=== PATIENT | male | born 1935 | race Caucasian/White ===

== ENCOUNTER → 2020-03-02 08:44 | Outpatient (CLI) | payer MEDICARE, OTHER | END | disposition home or self-care (01) | LOC: D.HCCECHO 08:44 | PROVIDERS: ATTEND Internal Medicine Cardiovascular Disease | DX: I10 Essential (primary) hypertension (principal) ==

== ENCOUNTER 2020-04-03 06:26 | Outpatient (CLI) | payer MEDICARE, OTHER ==
[~2020-04-03] VITALS: Ht 177.8 cm; Wt 86.8 kg
--- NOTE | ~2020-04-03 | HEMODYNAMI ---
PATIENT:MALLIKA JON MEDICAL RECORD: [id number] : 33 LOCATION:[facility] ADMISSION DATE: 04/03/20 Generatedon:04/03/20209:46 Patient name: MALLIKA JON Patient #: [id number] SSN: [id number] : 1935 Date of study: 04/03/2020 Page: Of Hemodynamic Procedure Report Patient Data Patient Demographics Procedure consent was obtained First Name: MALLIKA Gender: Male Last Name: DONTRELL : 1935 Patient #: [id number] Age: 84 year(s) Race: SSN: [id number] Additional ID: [id number] Contact details Address: [address] [place] [address] [place]: [place] [facility] [place] [place]: [address] Admission Admission Data Admission Date: 04/03/2020 Admission Time: 6: Arrival Date: 04/03/2020 Arrival Time: 0:00 Admit Source: Other Insurance Payor: Medicare [facility] #: [id number] Height (in.): 69.69 BSA: 2.03 (m2) Height (cm.): 177 BMI: 27.45 (kg/m2) Weight (lbs.): 189.6 Weight (kg.): 86 Lab Results Lab Result Date: 04/03/2020 Lab Result Time: 0:00 Biochemistry Name Units Result Min Max BUN mg/dl 32 --(----)-* 7 18 Creatinine mg/dl 1.7 --(----)-* 0.6 1.3 eGFR ml/min 41 *-(----)-- 90 120 NONAFRICAN CBC Name Units Result Min Max Hemoglobin g/dl 11.4 *-(----)-- 13.5 17.5 Procedure Procedure Types Cath Procedure Diagnostic Procedure LHC Coronaries only Aortic Root Angiography Sedation Charges Moderate Sedation up to 30 minutes Procedure Description Procedure Date Procedure Date: 04/03/2020 Procedure Start Time: 9:21 Procedure End Time: 9:43 Procedure Staff Name Function Brisa Bettencourt RT Monitor Angela Grace RN Nurse Anthony Beasley MD Performing Physician Geetha Canas RT Scrub Procedure Data Cath Procedure Fluoroscopy Diagnostic fluoroscopy Total fluoroscopy Time: 6.4 time: 6.4 min min Diagnostic fluoroscopy Total fluoroscopy dose: 923 dose: 923 mGy mGy Contrast Material Contrast Material Type Amount (ml) Isovue 300 74 Entry Location Entry Primary Successful Side Size Upsize Upsize Entry Closure Case ccessful Closure Location (Fr) 1 (Fr) 2 (Fr) Remarks Device Remarks Radial Right 6 Fr Mechanical artery Short Compression Femoral Right 5 Fr Exoseal artery Estimated blood loss: 5 ml Diagnostic catheters Device Type Used For End Catheter Placement DIAGNOSTIC Dom 110cm Multi-vessel 5Fr catheter ([id number]) Angiography DIAGNOSTIC AR1 MOD 5Fr Right Coronary catheter ([id number]) Angiography Procedure Complications No complications Procedure Medications Medication Administration Route Dosage Oxygen etCO2 Nasal cannula 2 l/min Lidocaine 2% added to field 20 Heparin Flush Bag added to field 2 bags (1000units/500ml NS) 0.9% NaCl I.V. 100 ml/hr Versed I.V. 1 mg Fentanyl I.V. 50 mcg Versed I.V. 1 mg Radial Cocktail I.A. 1 syringe (Verapamil 2mg/Nitro 400mcg/Heparin 1500units) Fentanyl I.V. 50 mcg Hemodynamics Rest BSA: 2.03 (m2) HGB: 11.4 (g/dl) O2 Consumption: Estimated: 211.48 (ml/min) O2 Co nsumption indexed: Estimated:104.18 (ml/min/m) Heart Rate: 45 (bpm) Snapshots Pre Cath Intra NCS Post Cath Vital Signs Time Heart Resp SPO2 etCO2 NIBP (mmHg) Rhythm Pain Sedation Rate (ipm) (%) (mmHg) Status Level (bpm) 9:06:58 46 17 100 38.5 110/65(78) SB 0 (11) 10(A) , No pain 9:11:57 43 10 97 36.3 128/64(100) SB 0 (11) 10(A) , No pain 9:16:14 42 11 96 37.8 127/63(102) SB 0 (11) 9(A) , No pain 9:20:30 45 11 97 0 120/62(92) SB 0 (11) 9(A) , No pain 9:24:48 45 16 95 0 87/48(70) SB 0 (11) 9(A) , No pain 9:29:00 46 12 94 35.5 97/53(62) SB 0 (11) 9(A) , No pain 9:33:09 46 10 94 37 110/60(85) SB 0 (11) 9(A) , No pain 9:37:24 45 10 95 37 116/58(87) SB 0 (11) 9(A) , No pain 9:41:39 43 12 95 38.5 105/57(80) SB 0 (11) 10(A) , No pain Medications Time Medication Route Dose Verified Delivered Reason Notes Effectiveness by by 9:06:06 Oxygen etCO2 2 l/min Anthony Buffie used for Nasal Ramos Grace RN procedure cannula 9:06:14 Lidocaine 2% added 20ml Anthony Anthony for local to vial Ramos Beasley MD anesthetic field 9:06:19 Heparin Flush added 2 bags Anthony Anthony used for Bag to Ramos Beasley MD procedure (1000units/500ml field NS) 9:06:29 0.9% NaCl I.V. 100 Anthony Buffie Per ml/hr Ramos Grace RN physician 9:11:32 Versed I.V. 1 mg Anthony Buffie for sedation Ramos Grace RN 9:11:39 Fentanyl I.V. 50 mcg Anthony Buffie for sedation Ramos Grace RN 9:17:07 Versed I.V. 1 mg Anthony Buffie for sedation Ramos Grace RN 9:23:32 Radial Cocktail I.A. 1 Anthony Anthony for (Verapamil syringe Ramos Beasley MD vasodilation 2mg/Nitro 400mcg/Hepari 9:37:27 Fentanyl I.V. 50 mcg Anthony Anthony for sedation Ramos Beasley MD Procedure Log Time Note 8:35:13 Informed consent obtained and on chart 8:35:23 Diagnostic Cath Status : Elective 8:36:09 Arrival Date: 04/03/2020 12:00:00 AM 8:36:10 Admit Source: Other 8:36:17 Insurance Payor : Medicare 8:45:25 Geetha MCKNIGHT(R) sent for patient. Start room use. 8:51:16 Patient Height : 69.69 inches 8:51:19 Patient Weight : 189.6 lbs 8:56:14 Lab Result : eGFR NONAFRICAN 41 ml/min 8:56:14 Lab Result : Hemoglobin 11.4 g/dl 8:56:14 Lab Result : BUN 32 mg/dl 8:56:14 Lab Result : Creatinine 1.7 mg/dl 8:56:23 Procedure Status Elective Heart Cath (OP). 8:56:32 Time tracking: Regular hours (M-F 7:00 - 5:00) 8:56:37 Plan of Care:Hemodynamics will remain stable., Cardiac rhythm will remain stable., Comfort level will be maintained., Respiratory function will remain adequate., Patient/ family verbilizes understanding of procedure., Procedure tolerated without complication., Recovers from procedure without complications.. 8:56:50 Patient received from Pre/Post Procedure Room to CCL 1 Alert and oriented. Tansferred to table in Supine position. 9:05:52 Vital chart was started 9:06:06 Oxygen 2 l/min etCO2 Nasal cannula was administered by Angela Grace RN; used for procedure; Verbal order read back and verified. 9:06:14 Lidocaine 2% 20ml vial added to field was administered by Anthony Beasley MD; for local anesthetic; Verbal order read back and verified. 9:06:19 Heparin Flush Bag (1000units/500ml NS) 2 bags added to field was administered by Anthony Beasley MD; used for procedure; Verbal order read back and verified. 9:06:23 Correct patient and procedure confirmed by team. 9:06:23 Warm blankets applied, and janey hugger turned on for patient comfort. 9:06:24 ECG and BP/O2 sat monitors applied to patient. 9:06:25 Baseline sample Acquired. 9:06:29 0.9% NaCl 100 ml/hr I.V. was administered by Angela Grace RN; Per physician; Verbal order read back and verified. 9:06:32 Rhythm: sinus bradycardia 9:06:34 Full Disclosure recording started 9:06:38 H&P Date Dictated: 04/03/2020 Within 30 days and on chart., H&P Addendum completed by physician on day of procedure. (MUST COMPLETE FOR ALL OUTPATIENTS). 9:06:40 Pre-op teaching completed and patient verbalized understanding. 9:06:40 Pre-procedure instructions explained to patient. 9:06:41 Family in patients room. 9:06:44 Patient NPO since Midnight. 9:06:45 Is the patient allergic to Iodine/contrast media? No. 9:06:46 Was the patient premedicated? Yes 9:06:48 Is patient on blood thinner?No 9:06:59 Patient diabetic? No. 9:07:03 Previous problem with sedation/anesthesia? No ? 9:07:05 Snore? Yes 9:07:06 Sleep apnea? No 9:07:07 Deviated septum? No 9:07:08 Opens mouth fully? Yes 9:07:09 Sticks out tongue? Yes 9:07:11 Airway obstruction? No ? 9:07:15 Dentures? No ? 9:07:19 Pre procedure: right dorsailis pedis pulse 2+ Normal; easily identifiable; not easily obliterated 9:07:22 Pre procedure: left dorsailis pedis pulse 2+ Normal; easily identifiable; not easily obliterated 9:07:24 Patient pain scale 0/10 ?. 9:07:30 IV patent on arrival in left forearm with 0.9% NaCl at KVO. 9:07:34 Lab results completed and on chart. 9:07:54 Stress Test: yes; abnormal INFERIOR 9:07:57 Risk of Mortality: 2.6 9:08:01 Risk of blood transfusion: 1.8 9:08:04 Risk of LUCERO: 8.0 9:08:19 Right Radial & Right Groin area was prepped with chlora-prep and draped in sterile fashion 9:08:21 Alarms reviewed by R. N. 9:08:22 Sharps counted by scrub and verified by R.N. 9:08:25 --------ALL STOP TIME OUT------ 9:08:25 Physician arrived 9:08:26 Final Timeout: patient, procedure, and site verified with staff and physician. All members of the team are in agreement. 9:08:28 Right Radial & Right Groin site verified by team. 9:08:32 Fire Safety Assessment: A--An alcohol-based skin anteseptic being used preoperatively., C--Open oxygen or nitrous oxide is being used., D--An ESU, laser, or fiber-optic light is being used. 9:08:35 Physical assessment completed. ASA score P 2 - A patient with mild systemic disease as per Anthony Beasley MD. 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 9:08:45 Maximum allowable contrast dose (3.7 X eGFR X 0.75)113 ml. 9:08:49 Sedation plan: IV Moderate Sedation Medication:Versed, Fentanyl 9:08:54 Use device set Radial Dx or PCI 9:08:55 Medline Cath Pack ([id number]) opened to sterile field. 9:08:55 ACIST Syringe (78789) opened to sterile field. 9:08:56 ACIST Hand Control (24733) opened to sterile field. 9:08:56 Bag Decanter (2002S) opened to sterile field. 9:08:57 Tegaderm 4 x 4 (1626W) opened to sterile field. 9:08:57 ACIST Manifold (51160) opened to sterile field. 9:08:58 MBrace Wrist Support ([id number]) opened to sterile field. 9:08:59 NEEDLE Cook 21G 4cm Radial (I59666) opened to sterile field. 9:09:01 EMERALD Guide Wire (831-402) opened to sterile field. 9:09:02 SHEATH 6FR RAIN (2467014) opened to sterile field. 9:11:32 Versed 1 mg I.V. was administered by Angela Grace RN; for sedation; Verbal order read back and verified. 9:11:39 Fentanyl 50 mcg I.V. was administered by Angela Grace RN; for sedation; Verbal order read back and verified. 9:17:07 Versed 1 mg I.V. was administered by Angela Grace RN; for sedation; Verbal order read back and verified. 9:20:05 Procedure started. 9:21:14 Local anesthetic to right radial artery with Lidocaine 2% by Anthony Beasley MD.INITIAL ACCESS ONLY 9:22:35 A 6 Fr Short sheath was inserted into the Right Radial artery 9:23:28 A DIAGNOSTIC Dom 110cm 5Fr catheter ([id number]) was advanced over the wire and used for Multi-vessel Angiography. 9:23:32 Radial Cocktail (Verapamil 2mg/Nitro 400mcg/Heparin 1500units) 1 syringe I.A. was administered by Anthony Beasley MD; for vasodilation; Verbal order read back and verified. 9::13 Catheter removed. unable to cannulate vessel. 9:26:31 DIAGNOSTIC Multipack 5Fr catheter set (QT3503) opened to sterile field. 9::32 SHEATH 5FR [place] (DVD786) opened to sterile field. 9:26:48 Local anesthetic to right femoral artery with Lidocaine 2% by Anthony Beasley MD.ADDITIONAL ACCESS 9:29:15 A 5 Fr sheath was inserted into the Right Femoral artery 9::27 5 Fr JL 4 guide catheter was inserted over the wire 9:29:44 LCA angiography performed. 9::47 Injector settings: Ml/sec: 3, Volume: 6, 9:34:19 Catheter removed. 9:34:30 5 Fr 3DRC guide catheter was inserted over the wire 9:34:40 Catheter removed. unable to cannulate vessel. 9:34:53 A DIAGNOSTIC AR1 MOD 5Fr catheter ([id number]) was advanced over the wire and used for Right Coronary Angiography. 9:37:09 RCA angiography performed. 9:37:13 ACCDominant side:Left 9:37:27 Fentanyl 50 mcg I.V. was administered by Anthony Beasley MD; for sedation; Verbal order read back and verified. 9:37:40 RCA OCCLUDED AT ORIGIN 9:37:43 Catheter removed. 9:38:08 5 Fr PIGTAIL guide catheter was inserted over the wire 9:39:25 Aortic Root visualized 9:40:04 Catheter removed. 9:40:22 Sheath removed intact; hemostasis achieved with Mechanical Compression to the Right Radial artery. 9:40:34 Sheath removed intact; hemostasis achieved with Exoseal to the Right Femoral artery. 9:40:43 ZEPHYR REGULAR TR BAND (754107) opened to sterile field. 9:40:51 Procedure ended.(Physican Out) 9:41:35 Fluoroscopy time 06.40 minutes. 9:41:39 Fluoroscopy dose: 923 mGy 9:41:39 Flurop Dose total: 923 9:41:50 Dose Area Product 69556 mGy/cm. 9:41:53 Contrast amount:Isovue 300 74ml. 9:41:57 Maximum allowable dose exceeded? No. 9:42:05 Sharps counted by scrub and verified by R.N. 9:42:39 Insertion/operative site no bleeding no hematoma. 9:42:42 Post-op/insertion site Right Femoral artery dressed using a 4 x 4 and Tegaderm. 9:42:46 Post right radial artery:stable 9:42:48 Post Procedure Pulses reassessed and unchanged 9:42:51 Post procedure rhythm: unchanged. 9:42:54 Estimated blood loss: 5 ml 9:42:55 Post procedure instruction explained to patient.Patient verbalizes understanding. 9:42:56 Patient needs reinforcement of post procedure teaching. 9:43:31 Procedure type changed to Cath procedure, Diagnostic procedure, LHC, Coronaries only, Aortic Root Angiography, Sedation Charges, Moderate Sedation up to 30 minutes 9:43:36 Procedure and supply charges have been captured, reviewed, submitted and are correct. 9:43:41 Procedure Complication : No complications 9:43:44 Adkins band inflated with 10cc of air. 9:43:47 Vital chart was stopped 9:43:49 [facility] Findings: MVD- MD will discuss options w/ pt 9:43:51 See physician's report for complete and final results. 9:43:51 Operative report dictated upon procedure completion. 9:43:53 Report given to Pre/Post Procedure Room. 9:43:56 Full Disclosure recording stopped 9:43:56 Procedure ended. 9:44:00 End room use (Document Last) Device Usage Item Name Manufacture Quantity Catalog Hospital Part Current Minima l Lot# / Number Charge Number Stock Stock Serial# Code ACIST Acist 1 92123 685864 607856 847144 20 Syringe Medical (09999) Systems Inc Medline Medline 1 [id number] 137835 25451 139323 5 Cath Pack ([id number]) Bag Microtek 1 956350 30060 182173 5 Decanter Medical Inc. () ACIST Hand Acist 1 73601 223988 354462 582335 5 Control Medical (88088) Systems Inc ACIST Acist 1 52944 375476 929524 328191 5 Manifold Medical (38877) Systems Inc Tegaderm 4 3M 1 1626W 622656 529064 020305 5 x 4 (1626W) MBrace Advanced 1 140-0250-00 183458 23917 349777 5 Wrist Vascular Support Dynamics ([id number]) NEEDLE Cook Hyampom Medical 1 O56334 082747 914196 475866 5 21G 4cm Radial (F12275) EMERALD Cardinal 1 502-455 480900 581182 771341 5 Guide Wire Health (502-455) SHEATH 6FR Cardinal 1 8352174 796577 6854223 035188 5 [facility] (9406098) DIAGNOSTIC Terumo 1 40-5023 171272 948568 534891 5 Dom 110cm 5Fr catheter (190878) DIAGNOSTIC Cardinal 1 GB5858 860014 02646 799328 30 Multipack Health 5Fr catheter set (VU6697) SHEATH 5FR Terumo 1 PNE000 711164 953631 302483 5 [place] (AIC895) DIAGNOSTIC Cardinal 1 [id number] 713640 175267 324565 15 AR1 MOD 5Fr Health catheter (162737R) ZEPHYR Cardinal 1 081192 147628 1922855 240564 5 REGULAR TR Health BAND (164878) Signature Audit [place] Stage Time Signature Unsigned Intra-Procedure 04/03/2020 Brisa Bettencourt 9:45:06 AM RT(R) Intra-Procedure 04/03/2020 Angela Grace RN 9:45:22 AM Intra-Procedure 04/03/2020 Anthony Beasley MD 9:46:38 AM [facility] [address] [place] [address]
[2020-04-03] MEDS ORDERED: LISINOPRIL-HCT1 EAC4 PO (06:50)
[2020-04-03] MEDS ORDERED: FLOMAX0.4 MG PO (06:51)
[2020-04-03 07:06] VITALS: BP 146/59; Ht 177.8 cm; Wt 86.8 kg
[2020-04-03 07:37] LABS: ANION GAP 9.9 mmol/L (8-16); CALCIUM 8.3 mg/dL (8.5-10.1); CARBON DIOXIDE 28.9 mmol/L (21.0-32.0); CHOL - HDL RATIO 3.2 ratio (2.3-4.9); CREATININE - SERUM 1.7 mg/dL (0.6-1.3); LDL-HDL RATIO 2.1 ratio (1.5-3.5); POTASSIUM - SERUM 3.8 mmol/L (3.5-5.1)
[2020-04-03 07:49] LABS: HEMATOCRIT 34.4 % (42.0-54.0); HEMOGLOBIN 11.4 g/dL (13.5-17.5); IMMATURE GRANULOCYTES 0.2 % (0-5); LYMPHOCYTES 28.8 % (15-50); MCH 31.6 pg (26.0-34.0); MCHC 33.1 g/dL (31.0-37.0); MCV 95.3 fL (80.0-100.0); MONOCYTES 9.6 % (2-11); NEUTROPHILS 53.4 % (40-80); PLATELET COUNT 184 10x3/uL (130-400); RBC 3.61 10x6/uL (4.20-6.10); RDW 12.8 % (11.5-14.5); WBC 5.7 10x3/uL (4.8-10.8)
--- NOTE | 2020-04-03 09:50 | NUR ---
DR VILLATORO HERE TO UPDATE PTS .
--- NOTE | 2020-04-03 10:00 | NUR ---
PT REC'D TO ROOM 12 VIA STRETCHER FROM EXPLORATION ENGINEER. MONITORS ESTAB. AT BS. PT DROWSY. SEE FIELD ACCOUNT MANAGER. ALARMS ON AND C/L IN REACH.
--- NOTE | 2020-04-03 10:15 | NUR ---
R WRIST SITE C/D/I, NO S/S BLEEDING OR HEMATOMA. PULSES PALP. R GROIN SITE SOFT, C/D/I, NO S/S BLEEDING OR SWELLING, BRISK CAP REFILL. VSS. PT RESTING QUIETLY. ALARMS ON AND C/L IN REACH.
--- NOTE | 2020-04-03 10:45 | NUR ---
R WRIST SITE C/D/I, HAND WARM. R GROIN SITE SOFT, C/D/I, NO S/S BLEEDING OR SWELLING. VSS. PT MORE ALERT. C/L IN REACH.
--- NOTE | 2020-04-03 11:00 | NUR ---
2 CC AIR REMOVED FROM Z BAND. R GROIN SITE SOFT, C/D/I. PULSES PALP. ALARMS ON AND C/L IN REACH.
--- NOTE | 2020-04-03 11:15 | NUR ---
R GROIN SITE SOFT, C/D/I. HOB UP AND COFFEE PROVIDED. VSS. PT DENIES PAIN. R Z BAND SITE C/D/I, NO S/S BLEEDING OR SWELLING - R HAND WARM. AT BS. C/L IN REACH.
--- NOTE | 2020-04-03 11:30 | NUR ---
5CC TOTAL REMOVED FROM Z BAND, NO S/S BLEEDING. R GROIN SITE SOFT, C/D/I. C/L IN REACH.
--- NOTE | 2020-04-03 11:45 | NUR ---
7CC TOTAL AIR REMOVED FROM Z BAND. PT SITTING UP IN BED VISITING WITH . VSS. C/L IN REACH.
--- NOTE | 2020-04-03 12:00 | NUR ---
ALL AIR REMOVED FROM Z BAND, NO S/S BLEEDING OR SWELLING. R GROIN SITE SOFT, C/D/I. PULSES PALP. VSS.
--- NOTE | 2020-04-03 12:20 | NUR ---
NO BLEEDING NOTED FROM WRIST OR GROIN. PIV D/C'D INTACT - DSG APPLIED. PT ALLOWED UP TO GET DRESSED WITH ASSISTING.
--- NOTE | 2020-04-03 12:30 | NUR ---
R Z BAND REMOVED, DSG AND ARM BOARD APPLIED. ALL DISCHARGE INSTRUCTIONS, INCLUDING RESTRICTIONS, MEDS AND F/U APPT. PT D/C'D TO PRIVATE VEHICLE WITH ALL BELONGINGS AND PAPERWORK.
== END 2020-04-03 12:30 | disposition home or self-care (01) ==
LOC: D.CATH 06:26
PROVIDERS: ATTEND Internal Medicine Cardiovascular Disease
DX: I35.0 Nonrheumatic aortic (valve) stenosis (principal); R94.30 Abnormal result of cardiovascular function study, unspecified; I10 Essential (primary) hypertension; K21.9 Gastro-esophageal reflux disease without esophagitis; R07.9 Chest pain, unspecified; I20.9 Angina pectoris, unspecified